=== PATIENT | male | born 2000 | race Caucasian/White ===

== ENCOUNTER 2023-05-05 10:02 | Emergency (ER) | payer SELFPAY ==
[~2023-05-05] VITALS: Ht 180.3 cm; Wt 90.7 kg
[2023-05-05 10:13] VITALS: BP 126/81; TEMP 98.1
[2023-05-05] MEDS ORDERED: [UNRECOGNIZED DRUG - CODE] EACHEYE (10:30)
[2023-05-05 10:41] VITALS: O2SAT 100
== END 2023-05-05 10:42 | disposition home or self-care (01) ==
LOC: ER 10:18
DX: Z76.0 Encounter for issue of repeat prescription (principal)

== ENCOUNTER 2025-02-04 23:49 | Emergency (ER) | payer SELFPAY ==
[~2025-02-04] VITALS: Ht 175.3 cm; Wt 99.8 kg
[~2025-02-04 23:49] MED LIST: [UNRECOGNIZED DRUG - CODE] EACHEYE
[2025-02-05] MEDS ORDERED: [UNRECOGNIZED DRUG - CODE] EACHEYE (00:26)
[2025-02-05 00:34] VITALS: BP 141/88; TEMP 98.2; O2SAT 97
== END 2025-02-05 00:34 | disposition home or self-care (01) ==
LOC: ER 23:51
DX: Z76.0 Encounter for issue of repeat prescription (principal)

== ENCOUNTER 2025-03-01 23:34 | Emergency (ER) | payer SELFPAY ==
[~2025-03-01] VITALS: Ht 175.3 cm; Wt 103.0 kg
[2025-03-02 00:25] VITALS: BP 114/83; TEMP 98; O2SAT 99
== END 2025-03-02 00:40 | disposition home or self-care (01) ==
LOC: ER 23:36
DX: G89.29 Other chronic pain (principal); Z76.0 Encounter for issue of repeat prescription